=== PATIENT | female | born 1980 | race Two or more races ===

== ENCOUNTER 2024-02-04 08:52 | Outpatient (CLI) | payer OTHER | END 2024-02-04 10:07 | disposition home or self-care (01) | LOC: MAMO-SONO 08:52 → RX STUDY 08:52 → MAMO-SONO 10:07 | PROVIDERS: ATTEND Obstetrics & Gynecology | DX: N64.4 Mastodynia (principal); N63.12 Unspecified lump in the right breast, upper inner quadrant; N63.21 Unspecified lump in the left breast, upper outer quadrant; N97.0 Female infertility associated with anovulation ==

== ENCOUNTER 2025-01-02 15:00 | Inpatient (IN) | payer OTHER ==
[~2025-01-02] VITALS: Ht 154.9 cm; Wt 94.3 kg
[2025-01-28] VITALS (8 sets, daily range): BP systolic 95–132; BP diastolic 50–86
[2025-01-28] MEDS ORDERED: OXYTOCIN 500 ML IV ONE (08:15)
[2025-01-28 08:36] LABS: HEMATOCRIT 37.9 % (36.0-45.00); HEMOGLOBIN 13.3 g/dL (12.0-15.00); MEAN CELL VOLUME 88.7 fL (80.00-100.00); MEAN CORPUSCULAR HEMOGLOBIN 31.1 pg (27.00-32.0); MEAN CORPUSCULAR HGB CONC 35.1 g/dl (32.0-36.0); PLATELET COUNT 174 K/uL (150-450); RED BLOOD COUNT 4.27 M/uL (4.00-6.00); RED CELL DISTRIBUTION WIDTH 13.9 % (11.5-14.5)
[2025-01-28] MEDS ORDERED: OBSTETRIX ONE1 EAC1 PO (09:07)
[2025-01-28] MEDS ORDERED: CLARITIN10 MG PO (09:07)
[2025-01-28 09:20] LABS: INR < 0.93; PARTIAL THROMBOPLASTIN TIME 25.3 SECONDS (22.0-34.0)
[2025-01-28 09:26] LABS: BILIRUBIN TOTAL 0.45 mg/dL (0.3-1.2); CALCIUM 8.8 mg/dL (8.5-10.1); CREATININE SERUM 0.61 mg/dL (0.55-1.02); GFR 107.56; GLOBULINA 3.6 G/DL (2.4-3.5); POTASSIUM 4.94 mEq/L (3.5-5.1); TOTAL PROTEIN 6.6 gm/dL (6.4-8.2)
[2025-01-28] MEDS ORDERED: RINGERS SOLUTION,LACTATED 1,000 ML IV SCH (09:30)
[2025-01-28] MEDS ORDERED: MEPERIDINE HCL/PF 25 MG/ML VIAL IV ONE (15:15)
[2025-01-28] MEDS ORDERED: PROMETHAZINE HCL 25 MG/ML AMPUL IV ONE (15:15)
[2025-01-28] MEDS ORDERED: FERROUS SULFATE 325 MG TABLET.EC PO SCH (17:51)
[2025-01-28] MEDS ORDERED: OXYTOCIN 1,000 ML IV SCH (18:00)
[2025-01-28] MEDS ORDERED: OxyCODONE HCL/APAP UD (PERCOCET) PO PRN (18:00)
[2025-01-28] MEDS ORDERED: IBUprofen 400 MG TABLET PO PRN (18:00)
[2025-01-28] MEDS ORDERED: METHYLERGONOVINE MALEATE 0.2 MG/ML AMPUL IM STA (19:34)
[2025-01-28] MEDS ORDERED: ERYTHROMYCIN BASE OPHT 1GM EACH TUBE OP ONE (19:45)
[2025-01-28] MEDS ORDERED: CARBOPROST TROMETHAMINE 250 MCG/ML AMPUL IM PRN (19:45)
[2025-01-28] MEDS ORDERED: CHLORHEXIDINE GLUCONATE 120 ML BOTTLE TOP ONE (19:45)
[2025-01-28] MEDS ORDERED: LIDOCAINE HCL 1% 10ML VIAL PERCUT ONE (19:45)
[2025-01-28] MEDS ORDERED: NALOXONE HCL 0.4 MG/ML AMPUL IV ONE (20:45)
[2025-01-29 00:19] VITALS: BP 107/72
[2025-01-29 07:21] VITALS: BP 110/76
[2025-01-29 08:04] LABS: HEMATOCRIT 29.8 % (36.0-45.00); HEMOGLOBIN 10.6 g/dL (12.0-15.00); MEAN CELL VOLUME 89.1 fL (80.00-100.00); MEAN CORPUSCULAR HEMOGLOBIN 31.7 pg (27.00-32.0); MEAN CORPUSCULAR HGB CONC 35.6 g/dl (32.0-36.0); PLATELET COUNT 157 K/uL (150-450); RED BLOOD COUNT 3.34 M/uL (4.00-6.00); RED CELL DISTRIBUTION WIDTH 13.7 % (11.5-14.5)
[2025-01-29 16:00] VITALS: BP 106/68
[2025-01-30 02:53] VITALS: BP 100/60
[2025-01-30 08:00] VITALS: BP 93/68
== END 2025-01-30 16:36 | disposition home or self-care (01) | DRG 807 ==
LOC: LDR 01-25 15:00 → OB/GYN 01-28 20:59
PROVIDERS: Obstetrics & Gynecology; ADMIT Obstetrics & Gynecology; ATTEND Obstetrics & Gynecology
PROC: 10E0XZZ Delivery of Products of Conception, External Approach (ICD-10-PCS; principal; 2025-01-28)
PROC: 0UQG7ZZ Repair Vagina, Via Natural or Artificial Opening (ICD-10-PCS; 2025-01-28)
PROC: 4A1HXCZ Monitoring of Products of Conception, Cardiac Rate, External Approach (ICD-10-PCS; 2025-01-28)
DX: O71.4 Obstetric high vaginal laceration alone (principal); Z37.0 Single live birth; Z3A.40 40 weeks gestation of pregnancy

== ENCOUNTER 2025-01-16 11:50 | Outpatient (CLI) | payer OTHER | END 2025-01-16 12:42 | disposition home or self-care (01) | LOC: NST 11:50 | PROVIDERS: ATTEND Obstetrics & Gynecology Gynecology | DX: Z3A.38 38 weeks gestation of pregnancy (principal) ==

== ENCOUNTER 2025-01-23 13:18 | Outpatient (CLI) | payer OTHER | END 2025-01-23 14:37 | disposition home or self-care (01) | LOC: NST 13:18 | PROVIDERS: ATTEND Obstetrics & Gynecology | DX: Z3A.39 39 weeks gestation of pregnancy (principal) ==